=== PATIENT | male | born 1930 | race Caucasian/White ===

== ENCOUNTER 2016-12-14 11:14 | Emergency (ER) | payer MEDICARE, BC ==
[~2016-12-14] VITALS: Ht 185.4 cm; Wt 75.0 kg
[~2016-12-14 11:14] MED LIST: ASCO10007 PO; ASPI-515 PO; ATOR80TA PO; CHOL10002 PO; HYDR-3138 PO; METH4TAB6 PO; MULT-717 PO; NAPR220T29 PO; OXYC10TA6 PO
[2016-12-14 11:18] VITALS: BP 160/76
[2016-12-14] MEDS ORDERED: DIPH,PERTUSS(ACELL),TET VAC/PF 0.5 ML IM-VACC ONE ×2 (11:40→12:00)
[2016-12-14] MEDS ORDERED: LIDOCAINE 1%, 20ML ONE (11:40)
[2016-12-14] MEDS ORDERED: IBUP800T PO (11:48)
[2016-12-14] MEDS ORDERED: LIDOCAINE 1%, 20ML INFIL ONE (12:00)
[2016-12-14] MEDS ORDERED: BACITRACIN ZINC OINT 500U/GM, 0.9 GM ONE (12:30)
== END 2016-12-14 13:03 | disposition home or self-care (01) ==
LOC: ED 12:11
DX: S01.81XA Laceration without foreign body of other part of head, initial encounter (principal); S50.311A Abrasion of right elbow, initial encounter; E78.00 Pure hypercholesterolemia, unspecified; N40.0 Benign prostatic hyperplasia without lower urinary tract symptoms; Z79.82 Long term (current) use of aspirin; Z95.0 Presence of cardiac pacemaker; W01.0XXA Fall on same level from slipping, tripping and stumbling without subsequent striking against object, initial encounter; Y93.89 Activity, other specified; Y99.8 Other external cause status; Y92.009 Unspecified place in unspecified non-institutional (private) residence as the place of occurrence of the external cause
CPT/HCPCS: 12013; 70450; 72125

== ENCOUNTER 2016-12-19 13:11 | Emergency (ER) | payer MEDICARE, BC ==
[~2016-12-19] VITALS: Ht 185.4 cm; Wt 78.3 kg
[~2016-12-19 13:11] MED LIST changes: +IBUP800T PO
[2016-12-19 13:14] VITALS: BP 172/78
== END 2016-12-19 14:08 | disposition home or self-care (01) ==
LOC: ED 14:02
DX: S01.81XD Laceration without foreign body of other part of head, subsequent encounter (principal); E78.00 Pure hypercholesterolemia, unspecified; X58.XXXD Exposure to other specified factors, subsequent encounter; Y92.89 Other specified places as the place of occurrence of the external cause; Y99.9 Unspecified external cause status
CPT/HCPCS: 99281

== ENCOUNTER 2017-12-01 09:27 | Emergency (ER) | payer MEDICARE, BC ==
[~2017-12-01] VITALS: Ht 185.4 cm; Wt 79.2 kg
[~2017-12-01 09:27] MED LIST changes: +ASCO100019 PO; -ASCO10007 PO; -HYDR-3138 PO; +HYDR-3237 PO; +IBUP-1223 PO; -IBUP800T PO; +NAPR-816 PO; -NAPR220T29 PO
[2017-12-01 09:34] VITALS: BP 161/76
[2017-12-01] MEDS ORDERED: ASPI-496 PO (09:53)
[2017-12-01] MEDS ORDERED: LIDOCAINE-MPF 1%, 5ML ONE (09:56)
== END 2017-12-01 10:38 | disposition home or self-care (01) ==
LOC: ED 09:59
DX: L02.31 Cutaneous abscess of buttock (principal)
CPT/HCPCS: 10060; 99283

== ENCOUNTER 2017-12-03 11:07 | Emergency (ER) | payer MEDICARE, BC ==
[~2017-12-03] VITALS: Ht 185.4 cm; Wt 77.5 kg
[~2017-12-03 11:07] MED LIST changes: +ASPI-496 PO
[2017-12-03] MEDS ORDERED: SODIUM CHLORIDE 0.9% 1,000ML IVBOLUS ONE (11:30)
[2017-12-03] MEDS ORDERED: SULF1TAB24 PO (11:59)
[2017-12-03 12:08] LABS: BASOPHILS # (AUTO) 0.03 x10^3/uL (0-0.1); BASOPHILS % (AUTO) 0 % (0-1); EOSINOPHILS # (AUTO) 0.12 x10^3/uL (0-0.4); EOSINOPHILS % (AUTO) 2 % (1-7); LYMPHOCYTES # (AUTO) 0.92 x10^3/uL (1-3.4); LYMPHOCYTES % (AUTO) 11 % (22-44); MD NO; MEAN CORPUSCULAR HEMOGLOBIN 31.5 pg (27.5-34.5); MEAN CORPUSCULAR HGB CONC 33.4 g/dL (33.2-36.2); MEAN CORPUSCULAR VOLUME 94.3 fL (81-97); MEAN PLATELET VOLUME 8.1 fL (7.4-10.4); MONOCYTES # (AUTO) 1.06 x10^3/uL (0.2-0.8); MONOCYTES % (AUTO) 13 % (2-9); NEUTROPHILS # (AUTO) 6.24 x10^3/uL (1.8-6.8); NEUTROPHILS % (AUTO) 75 % (42-75); PLATELET COUNT 204 x10^3/uL (130-400); RED BLOOD COUNT 4.75 x10^6/uL (4.38-5.82); RED CELL DISTRIBUTION WIDTH 14.9 % (9.4-14.8)
[2017-12-03 12:10] LABS: ALANINE AMINOTRANSFERASE 37 U/L (12-78); ALBUMIN 3.8 g/dL (3.4-5.0); ANION GAP 8 mmol/L (5-15); CHLORIDE 108 mmol/L (98-107); CREATININE 1.57 mg/dL (0.7-1.3)
[2017-12-03 12:13] LABS: ALKALINE PHOSPHATASE 93 U/L (45-117); BILIRUBIN,TOTAL 0.8 mg/dL (0.2-1.0); TOTAL PROTEIN 6.6 g/dL (6.4-8.2)
[2017-12-03 13:46] LABS: MICROSCOPIC NOT IND
[2017-12-03 13:56] LABS: CULTURE INDICATED? NO
[2017-12-03 14:36] VITALS: BP 134/86
== END 2017-12-03 14:37 | disposition home or self-care (01) ==
LOC: ED 13:52
DX: R35.0 Frequency of micturition (principal); R31.29 Other microscopic hematuria; R39.15 Urgency of urination; L72.3 Sebaceous cyst; N40.1 Benign prostatic hyperplasia with lower urinary tract symptoms; E78.00 Pure hypercholesterolemia, unspecified; Z95.0 Presence of cardiac pacemaker
CPT/HCPCS: 36415; 71045; 80053; 81003; 85025; 93005; 99285

== ENCOUNTER 2018-06-27 04:45 | Inpatient (IN) | payer MEDICARE, OTHER ==
[~2018-06-27] VITALS: Ht 185.4 cm; Wt 76.7 kg
[~2018-06-27 04:45] MED LIST changes: +SULF1TAB24 PO
[2018-06-27] MEDS ORDERED: ASCO10004 PO (05:13)
[2018-06-27] MEDS ORDERED: FURO20TA3 PO (05:13)
[2018-06-27] MEDS ORDERED: AMIO200T7 PO (05:13)
[2018-06-27] MEDS ORDERED: FERR324T8 PO (05:13)
[2018-06-27] MEDS ORDERED: POTA20TA14 PO (05:13)
[2018-06-27] MEDS ORDERED: APIX5TAB PO (05:13)
[2018-06-27] MEDS ORDERED: DILT120C75 PO (05:13)
[2018-06-27 05:49] LABS: BASOPHILS # (AUTO) 0.02 x10^3/uL (0-0.1); BASOPHILS % (AUTO) 0 % (0-1); EOSINOPHILS # (AUTO) 0.42 x10^3/uL (0-0.4); EOSINOPHILS % (AUTO) 5 % (1-7); LYMPHOCYTES # (AUTO) 0.57 x10^3/uL (1-3.4); LYMPHOCYTES % (AUTO) 6 % (22-44); MD NO; MEAN CORPUSCULAR HEMOGLOBIN 32.1 pg (27.5-34.5); MEAN CORPUSCULAR HGB CONC 33.9 g/dL (33.2-36.2); MEAN CORPUSCULAR VOLUME 94.9 fL (81-97); MEAN PLATELET VOLUME 7.8 fL (7.4-10.4); MONOCYTES # (AUTO) 0.94 x10^3/uL (0.2-0.8); MONOCYTES % (AUTO) 10 % (2-9); NEUTROPHILS # (AUTO) 7.25 x10^3/uL (1.8-6.8); NEUTROPHILS % (AUTO) 79 % (42-75); PLATELET COUNT 193 x10^3/uL (130-400); RED BLOOD COUNT 3.59 x10^6/uL (4.38-5.82); RED CELL DISTRIBUTION WIDTH 14.6 % (9.4-14.8)
[2018-06-27 05:53] LABS: INTERNATIONAL NORMALIZED RATIO 1.21 (0.93-1.1); PROTHROMBIN TIME 12.7 Seconds (9.6-11.5)
[2018-06-27 05:55] LABS: ALANINE AMINOTRANSFERASE 65 U/L (12-78); ALBUMIN 3.4 g/dL (3.4-5.0); ANION GAP 9 mmol/L (5-15); CALCIUM 8.9 mg/dL (8.5-10.1); CHLORIDE 113 mmol/L (98-107); CREATININE 1.56 mg/dL (0.7-1.3)
[2018-06-27 05:59] LABS: ALKALINE PHOSPHATASE 116 U/L (45-117); BILIRUBIN,TOTAL 1.2 mg/dL (0.2-1.0); TOTAL PROTEIN 6.4 g/dL (6.4-8.2); TROPONIN I 0.041 ng/mL (0.000-0.045)
[2018-06-27] MEDS ORDERED: FUROSEMIDE 20 MG/2 ML ONE (06:20)
[2018-06-27] MEDS ORDERED: FUROSEMIDE 40 MG/4 ML IV ONE (06:30)
[2018-06-27] MEDS ORDERED: DOCUSATE 100 MG CAPSULE PO PRN (07:30)
[2018-06-27] MEDS ORDERED: ACETAMINOPHEN 325 MG TABLET PO PRN (07:30)
[2018-06-27] MEDS ORDERED: ONDANSETRON 2MG/ML, 2ML IVPush PRN (07:30)
[2018-06-27] MEDS ORDERED: ONDANSETRON ODT 4 MG PO PRN (07:30)
[2018-06-27] MEDS: FUROSEMIDE 20 MG/2 ML IV SCH ×2 (07:30→17:24)
[2018-06-27] MEDS ORDERED: BISACODYL 10 MG SUPP PR PRN (07:30)
[2018-06-27] MEDS ORDERED: hydrALAzine 20 MG/ML, 1ML IVPush PRN (07:30)
[2018-06-27] MEDS ORDERED: DILTIAZEM 5 MG/ML, 5ML IVPush PRN (07:30)
[2018-06-27] MEDS ORDERED: ATORVASTATIN 80 MG TABLET PO SCH (09:00)
[2018-06-27] MEDS ORDERED: APIXABAN 5 MG TABLET PO SCH (09:00)
[2018-06-27] MEDS: ASCORBIC ACID 500 MG TABLET PO SCH (09:03)
[2018-06-27] MEDS: DILTIAZEM 120 MG CAP.ER.24H PO SCH (09:03)
[2018-06-27] MEDS: CHOLECALCIFEROL 1,000 UNIT TABLET PO SCH (09:04)
[2018-06-27] MEDS: MULTIVITAMIN 1 TABLET PO SCH (09:05)
[2018-06-27] MEDS: FERROUS GLUCONATE 324 MG TABLET PO SCH (09:05)
[2018-06-27] MEDS ORDERED: APIXABAN 5 MG TABLET ONE (09:09)
[2018-06-27] MEDS ORDERED: SENNA/DOCUSATE TABLET ONE (09:09)
[2018-06-27] MEDS ORDERED: AMIODARONE 200 MG TABLET ONE (09:10)
[2018-06-27] MEDS ORDERED: POTASSIUM CHLORIDE 20 MEQ TAB.ER.PRT ONE (09:10)
[2018-06-27] MEDS: AMIODARONE 200 MG TABLET PO SCH (09:12)
[2018-06-27] MEDS: SENNA/DOCUSATE TABLET PO SCH (09:12)
[2018-06-27] MEDS: POTASSIUM CHLORIDE 20 MEQ TAB.ER.PRT PO SCH (09:13)
[2018-06-27 11:44] VITALS: BP 130/87
[2018-06-27 12:04] VITALS: BP 130/87
[2018-06-27 13:21] VITALS: BP 140/82
[2018-06-27] MEDS: APIXABAN 2.5 MG TABLET PO SCH (20:21)
[2018-06-27 21:00] VITALS: BP 116/69
[2018-06-28 02:39] VITALS: BP 121/80
[2018-06-28 05:11] LABS: BASOPHILS # (AUTO) 0.07 x10^3/uL (0-0.1); BASOPHILS % (AUTO) 1 % (0-1); EOSINOPHILS % (AUTO) 8 % (1-7); LYMPHOCYTES # (AUTO) 0.65 x10^3/uL (1-3.4); LYMPHOCYTES % (AUTO) 7 % (22-44); MD NO; MEAN CORPUSCULAR HGB CONC 33.9 g/dL (33.2-36.2); MEAN CORPUSCULAR VOLUME 94.2 fL (81-97); MEAN PLATELET VOLUME 8.1 fL (7.4-10.4); MONOCYTES # (AUTO) 0.84 x10^3/uL (0.2-0.8); MONOCYTES % (AUTO) 9 % (2-9); NEUTROPHILS # (AUTO) 7.03 x10^3/uL (1.8-6.8); NEUTROPHILS % (AUTO) 76 % (42-75); PLATELET COUNT 190 x10^3/uL (130-400); RED BLOOD COUNT 3.58 x10^6/uL (4.38-5.82); RED CELL DISTRIBUTION WIDTH 13.9 % (9.4-14.8)
[2018-06-28 05:21] LABS: ANION GAP 8 mmol/L (5-15); CALCIUM 8.4 mg/dL (8.5-10.1); CHLORIDE 110 mmol/L (98-107)
[2018-06-28 05:30] LABS: ALANINE AMINOTRANSFERASE 61 U/L (12-78); ALKALINE PHOSPHATASE 107 U/L (45-117); BILIRUBIN,TOTAL 1.2 mg/dL (0.2-1.0); CHOL/HDL RATIO 2.2; CHOLESTEROL, TOTAL 98 mg/dL (140-239); HDL CHOL % 45 % (26-37); HDL CHOLESTEROL (DIRECT) 44 mg/dL (40-60); LDL CHOLESTEROL,CALCULATED 43 mg/dL (54-169); TOTAL PROTEIN 5.8 g/dL (6.4-8.2); TRIGLYCERIDES 53 mg/dL (50-200); VLDL CHOLESTEROL 11 mg/dL (0-25)
[2018-06-28 07:25] VITALS: BP 132/88
[2018-06-28] MEDS: DILTIAZEM 120 MG CAP.ER.24H PO SCH (09:03)
[2018-06-28] MEDS: ASCORBIC ACID 500 MG TABLET PO SCH (09:03)
[2018-06-28] MEDS: APIXABAN 2.5 MG TABLET PO SCH (09:04)
[2018-06-28] MEDS: MULTIVITAMIN 1 TABLET PO SCH (09:04)
[2018-06-28] MEDS: AMIODARONE 200 MG TABLET PO SCH (09:04)
[2018-06-28] MEDS: FERROUS GLUCONATE 324 MG TABLET PO SCH (09:04)
[2018-06-28] MEDS: CHOLECALCIFEROL 1,000 UNIT TABLET PO SCH (09:04)
[2018-06-28] MEDS: POTASSIUM CHLORIDE 20 MEQ TAB.ER.PRT PO SCH (09:04)
[2018-06-28] MEDS: SENNA/DOCUSATE TABLET PO SCH (09:05)
[2018-06-28] MEDS: FUROSEMIDE 20 MG/2 ML IV SCH (09:11)
[2018-06-28] MEDS ORDERED: FURO20TA3 PO (10:21)
[2018-06-28 14:00] VITALS: BP 126/74
[2018-06-28] MEDS ORDERED: APIXABAN 5 MG TABLET PO SCH (21:00)
== END 2018-06-28 16:17 | disposition home or self-care (01) | DRG 291 ==
LOC: ED 05:20 → EDIP 06:13 → 5SO 11:34
PROVIDERS: ADMIT Hospitalist; ATTEND Hospitalist
DX: I50.33 Acute on chronic diastolic (congestive) heart failure (principal); J96.01 Acute respiratory failure with hypoxia; N17.9 Acute kidney failure, unspecified; D68.69 Other thrombophilia; E78.5 Hyperlipidemia, unspecified; D50.9 Iron deficiency anemia, unspecified; Z96.643 Presence of artificial hip joint, bilateral; G56.03 Carpal tunnel syndrome, bilateral upper limbs; I48.91 Unspecified atrial fibrillation; Z66 Do not resuscitate; Z79.01 Long term (current) use of anticoagulants; Z81.1 Family history of alcohol abuse and dependence; Z95.0 Presence of cardiac pacemaker
CPT/HCPCS: 36415; 71045; 80053; 80061; 83735; 83880; 84100; 84443; 84484; 85025; 85610; 85730; 93005; 96374; 99285; G0378; J1940